=== PATIENT | male | born 1965 | race Caucasian/White ===

== ENCOUNTER 2017-07-27 08:23 | Day surgery (SDC) | payer OTHER ==
[~2017-07-27] VITALS: Ht 188 cm; Wt 94.0 kg
[~2017-07-27 08:23] MED LIST: ROSU10TA PO
[2017-07-27] MEDS ORDERED: ROSU10TA PO (08:48)
== END 2017-07-27 10:42 | disposition home or self-care (01) ==
LOC: ORSCSDS 08:23
PROVIDERS: Internal Medicine Gastroenterology
PROC: 0DBM8ZX Excision of Descending Colon, Via Natural or Artificial Opening Endoscopic, Diagnostic (ICD-10-PCS; principal; 2017-07-27 09:45)
DX: Z12.11 Encounter for screening for malignant neoplasm of colon (principal); D12.4 Benign neoplasm of descending colon; K64.8 Other hemorrhoids; K57.30 Diverticulosis of large intestine without perforation or abscess without bleeding; Z86.010 Personal history of colon polyps
CPT/HCPCS: 88305; J7120

== ENCOUNTER 2020-11-23 00:37 | Day surgery (SDC) | payer OTHER | END 2020-11-23 16:35 | disposition home or self-care (01) | LOC: ATC 00:37 | DX: U07.1 COVID-19 (principal); E11.9 Type 2 diabetes mellitus without complications; K21.9 Gastro-esophageal reflux disease without esophagitis; E78.2 Mixed hyperlipidemia; Z79.84 Long term (current) use of oral hypoglycemic drugs; E66.3 Overweight; Z68.28 Body mass index [BMI] 28.0-28.9, adult | CPT/HCPCS: 96365; Q0243 ==

== ENCOUNTER 2022-10-13 07:43 | Day surgery (SDC) | payer OTHER ==
[~2022-10-13] VITALS: Ht 188 cm; Wt 89.3 kg
[2022-10-13] MEDS ORDERED: METF500 PO (08:14)
[2022-10-13] MEDS ORDERED: VITAMIN B122500 MC1 PO (08:14)
[2022-10-13 10:29] VITALS: BP 110/88
== END 2022-10-13 10:00 | disposition home or self-care (01) ==
LOC: ORSCSDS 07:43
PROVIDERS: Internal Medicine Gastroenterology
PROC: 0DBL8ZX Excision of Transverse Colon, Via Natural or Artificial Opening Endoscopic, Diagnostic (ICD-10-PCS; principal; 2022-10-13 09:00)
DX: Z12.11 Encounter for screening for malignant neoplasm of colon (principal); Z86.010 Personal history of colon polyps; D12.3 Benign neoplasm of transverse colon; K57.30 Diverticulosis of large intestine without perforation or abscess without bleeding; K64.8 Other hemorrhoids; K21.9 Gastro-esophageal reflux disease without esophagitis; Z79.84 Long term (current) use of oral hypoglycemic drugs; Z79.899 Other long term (current) drug therapy
CPT/HCPCS: 82947; 88305; J2704; J7120